=== PATIENT | male | born 1965 | race Caucasian/White ===

== ENCOUNTER 2016-08-23 22:56 | Emergency (ER) | payer BC, OTHER ==
[~2016-08-23] VITALS: Ht 180.3 cm; Wt 107.7 kg
[2016-08-23 23:07] VITALS: BP 198/107; PULSE 99; RESP 22; TEMP 98.7; O2SAT 98
--- NOTE | 2016-08-23 23:14 | PD ---
HPI Chief Complaint: psychiatric evaluation Time Seen by Provider: 23:10 Travel History International Travel<30 days: No Contact w/Intl Traveler<30days: No History of Present Illness HPI Patient comes in under police escort [place] acted by police. Per Blair act patient contacted his "baby mama" and made suicidal statements. Patient denies this. Patient denies any homicidal or suicidal ideations. Patient denies any medical concerns this time. Denies any chest pain, shortness of breath, fevers , abdominal pain, back pain, neck pain, numbness or tingling anywhere, or headaches. Patient's only concern that he is missing the [employer] game that he was wanting to watch as he paid for the premium baseball channel package. PFSH Past Medical History GERD: Yes Social History Alcohol Use: No Tobacco Use: No Substance Use: No Allergies-Medications (Allergen,Severity, Reaction): Coded Allergies: Latex (Verified Allergy, Unknown, 08/23/16) Reported Meds & Prescriptions Reported Meds & Active Scripts Active Reported Nexium (Esomeprazole DR) 20 Mg Capdr 20 Mg PO DAILY Ambien (Zolpidem Tartrate) 10 Mg Tab 10 Mg PO HS PRN Review of Systems Except as stated in HPI: all other systems reviewed are Neg Physical Exam Narrative GENERAL: Well-developed, overly nourished, in no acute distress, and non-ill appearing. SKIN: Focused skin assessment warm and dry. HEAD: Atraumatic. Normocephalic. EYES: Pupils equal and round. EOMI. No scleral icterus. No injection or drainage. ENT: No nasal bleeding or discharge. Mucous membranes pink and moist. NECK: Trachea midline. Supple. No nuclear rigidity. CARDIOVASCULAR: Regular rate and rhythm. No murmur appreciated. RESPIRATORY: No accessory muscle use. No respiratory distress. Clear to auscultation. Breath sounds equal bilaterally. MUSCULOSKELETAL: No obvious deformities. No clubbing. No cyanosis. No edema. Full range of motion. NEUROLOGICAL: Awake and alert. No obvious cranial nerve deficits. Motor grossly within normal limits. Normal speech. PSYCHIATRIC: Appropriate mood and affect; insight and judgment normal. Data Data Last Documented VS Vital Signs Date Time Temp Pulse Resp B/P Pulse Ox O2 Delivery O2 Flow Rate FiO2 08/23/16 23:07 98.7 99 22 198/107 98 Orders Complete Blood Count With Diff (08/23/16 23:09) Comprehensive Metabolic Panel (08/23/16 23:09) Psych Screen (08/23/16 23:09) Drug Screen, Random Urine (08/23/16 23:09) Alcohol (Ethanol) (08/23/16 23:09) Salicylates (Aspirin) (08/23/16 23:09) Tylenol (Acetaminophen) (08/23/16 23:09) Labs Laboratory Tests Test 08/23/16 23:30 White Blood Count 11.3 TH/MM3 Red Blood Count 5.08 MIL/MM3 Hemoglobin 15.7 GM/DL Hematocrit 46.3 % Mean Corpuscular Volume 91.1 FL Mean Corpuscular Hemoglobin 30.9 PG Mean Corpuscular Hemoglobin 33.9 % Concent Red Cell Distribution Width 13.3 % Platelet Count 282 TH/MM3 Mean Platelet Volume 8.4 FL Neutrophils (%) (Auto) 55.5 % Lymphocytes (%) (Auto) 27.5 % Monocytes (%) (Auto) 11.8 % Eosinophils (%) (Auto) 4.3 % Basophils (%) (Auto) 0.9 % Neutrophils # (Auto) 6.2 TH/MM3 Lymphocytes # (Auto) 3.1 TH/MM3 Monocytes # (Auto) 1.3 TH/MM3 Eosinophils # (Auto) 0.5 TH/MM3 Basophils # (Auto) 0.1 TH/MM3 CBC Comment DIFF FINAL Differential Comment Salicylates Level LESS THAN 1.7 MG/DL Sodium Level 142 MEQ/L Potassium Level 3.7 MEQ/L Chloride Level 109 MEQ/L Carbon Dioxide Level 24.4 MEQ/L Anion Gap 9 MEQ/L Blood Urea Nitrogen 15 MG/DL Creatinine 1.12 MG/DL Estimat Glomerular Filtration 70 ML/MIN Rate Random Glucose 108 MG/DL Calcium Level 8.7 MG/DL Total Bilirubin 0.5 MG/DL Aspartate Amino Transf 17 U/L (AST/SGOT) Alanine Aminotransferase 37 U/L (ALT/SGPT) Alkaline Phosphatase 48 U/L Total Protein 7.2 GM/DL Albumin 4.0 GM/DL Acetaminophen Level LESS THAN 2.0 MCG/ML Ethyl Alcohol Level LESS THAN 3 MG/DL MDM Medical Decision Making Medical Screen Exam Complete: Yes Emergency Medical Condition: Yes Differential Diagnosis Homicidal, suicidal, electrolyte abnormality, intoxication, psychosis, other Narrative Course Patient was seen and examined. Labs were obtained and reviewed with the exception of the urine drug screen is currently pending. Patient medically cleared for further treatment and evaluation by psych. Final disposition per psych. Diagnosis Primary Impression: Medical clearance for psychiatric admission Condition: Stable Bari Elkins Aug 23, 2016 23:14
[2016-08-23] MEDS ORDERED: AMBI10TA PO (23:18)
[2016-08-23] MEDS ORDERED: NEXI20CA PO (23:18)
[2016-08-23 23:56] LABS: AUTOMATED NEUTROPHIL # 6.2 TH/MM3 (1.8-7.7); BASOPHIL # 0.1 TH/MM3 (0-0.2); BASOPHIL % 0.9 % (0.0-2.0); EOSINOPHIL # 0.5 TH/MM3 (0-0.4); EOSINOPHIL % 4.3 % (0.0-4.0); HEMATOCRIT 46.3 % (39.0-51.0); HEMO FLAGS DIFF FINAL; LYMPH % 27.5 % (9.0-44.0); LYMPHOCYTE # 3.1 TH/MM3 (1.0-4.8); MEAN CELL VOLUME 91.1 FL (80.0-100.0); MEAN CORPUSCULAR HEMOGLOBIN 30.9 PG (27.0-34.0); MEAN CORPUSCULAR HGB CONC 33.9 % (32.0-36.0); MONO % 11.8 % (0.0-8.0); NEUT % 55.5 % (16.0-70.0); PLATELET COUNT 282 TH/MM3 (150-450); RED BLOOD COUNT 5.08 MIL/MM3 (4.50-5.90); RED CELL DISTRIBUTION WIDTH 13.3 % (11.6-17.2); WHITE BLOOD COUNT 11.3 TH/MM3 (4.0-11.0)
[2016-08-24] LABS: ALT (GPT) 37 U/L (12-78); ANION GAP 9 MEQ/L (5-15); AST (GOT) 17 U/L (15-37); BICARBONATE 24.4 MEQ/L (21.0-32.0); BLOOD UREA NITROGEN 15 MG/DL (7-18); CHLORIDE 109 MEQ/L (98-107); GLOMERULAR FILTRATION RATE 70 ML/MIN (>89); POTASSIUM 3.7 MEQ/L (3.5-5.1); SODIUM (NA) 142 MEQ/L (136-145)
[2016-08-24 00:02] LABS: ACETAMINOPHEN LESS THAN 2.0 MCG/ML (10.0-30.0); ALKALINE PHOSPHATASE 48 U/L (45-117); TOTAL BILIRUBIN ADULT 0.5 MG/DL (0.2-1.0)
[2016-08-24] MEDS ORDERED: ZOLPIDEM TARTRATE 10 MG TAB PO ONE (00:30)
[2016-08-24 00:44] LABS: AMPHETAMINE, URINE NEG (NEG); BARBITURATES, URINE NEG (NEG); COCAINE, URINE NEG (NEG)
[2016-08-24 03:00] VITALS: BP 186/91; PULSE 78; RESP 18; O2SAT 96
[2016-08-24 08:00] VITALS: BP 172/74; PULSE 78; RESP 18; O2SAT 96
[2016-08-24 11:45] VITALS: BP 181/89
[2016-08-24] MEDS ORDERED: LOPERAMIDE HCL 2 MG CAP PO ONE (11:45)
--- NOTE | 2016-08-24 16:01 | PD ---
History of Present Illness Chief Complaint: Psychiatric Symptoms Time Seen by Provider: 15:30 Travel History International Travel<30 Days: No Contact w/Intl Traveler<30days: No Known affected area: No Legal Status Legal Status: Blair Act Blair Act Signed By: Triston Germain Blair Act Comment: 2016 @ 2227 History of Present Illness: History of Present Illness HPI Patient is a 50 year old male with no previous psychiatric history, no previous contact with [facility] [place] who is under a Blair acted initiated by police. Per Blair act report "patient contacted his "baby mama" to tell her he might kill himself. When the police contacted his child's mother she stated he told her he was going to kill himself and leave a note" . ED note is reviewed and included in this report " Patient denies this. Patient denies any homicidal or suicidal ideations. Patient denies any medical concerns this time. Denies any chest pain, shortness of breath, fevers, abdominal pain, back pain, neck pain, numbness or tingling anywhere, or headaches. Patient's only concern that he is missing the [employer] game that he was wanting to watch as he paid for the premium baseball channel package. Patient was monitored in J pod and he presented no behavioral issues and no no suicidality. Patient is seen with Bari WALLACE. He is engaging and cooperative. Speech is clear and logical. he is anxious as he wants to be discharged. He presents with no psychosis and no laura. He denies suicidal ideation, intent or plan. States " I want to be a part of my daughter's life and I am not going to hurt myself" What father would fly from another state to [place] to see his daughter 68 months out of 70 months?. He goes on to say that he was frustrated because there have been issues with his ex girlfriend and arrangements involving him spending time with his daughter. He denies saying that he was going to harm himself. Telephone call to Pia, his child's mother with his consent at [phone]. She reports that she was concerned because of what he had said but that he did not make any attempt at harming himself. She states " He said he was going to write notes and I just wanted to make sure he was ok". She presented no other concerns at this time. [facility] Past Medical History Gastrointestinal Disorders: Yes GERD: Yes Hypertension: Yes (hx of ) Insomnia: Yes Tetanus Vaccination: < 5 Years Influenza Vaccination: No Past Surgical History Tonsillectomy: Yes Psychiatric History Psychiatric History Hx Psychiatric Treatment: None No previous suicide attempts. History of Inpatient Treatment: No Guns or firearms in home: No Social History Single, never . Lives by himself. Unemployed. Has a job opportunity in next week. 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 Hx Alcohol Use: No Hx Tobacco Use: No Hx Substance Use: No Hx of Substance Use Treatment: No Family Psychiatric History Negative Allergies-Medications (Allergen,Severity, Reaction): Coded Allergies: Latex (Verified Allergy, Unknown, 08/23/16) Reported Meds & Prescriptions Reported Meds & Active Scripts Active Reported Nexium (Esomeprazole DR) 20 Mg Capdr 20 Mg PO DAILY Ambien (Zolpidem Tartrate) 10 Mg Tab 10 Mg PO HS PRN Review of Systems Except as stated in HPI: all other systems reviewed are Neg Exam Alert: Yes [place]: Person (ox4) Mood: Anxious Affect: Appropriate Speech: Clear, Logical Eye Contact: Normal Memory Intact: Comment (No impairmetn) Hallucinations: Other (negative) Delusions: No Suicidal: Ideation (denies any) Homicidal: Ideation (Deneis any) Insight/Judgement Fair. Not impaired [facility] Medical Decision Making Medical Record Reviewed: Yes Assessment/Plan 50 year old male with no previous psychiatric history who in context of an argument with his child's mother told her that he might kill himself and may write a note. He acknowledges he said this while he was angry and while arguing with his ex girlfriend. The patient has presented no criteria while in J pod and has not engaged in any self injurious behaviors. He presents no criteria to keep him here under a BA. I have recommended outpatient counseling. Lift BA Orders Complete Blood Count With Diff (08/23/16 23:09) Comprehensive Metabolic Panel (08/23/16 23:09) Psych Screen (08/23/16 23:09) Drug Screen, Random Urine (08/23/16 23:09) Alcohol (Ethanol) (08/23/16 23:09) Salicylates (Aspirin) (08/23/16 23:09) Tylenol (Acetaminophen) (08/23/16 23:09) Zolpidem (Ambien) (08/24/16 00:30) Diet Regular Basic (08/24/16 Breakfast) Loperamide (Imodium) (08/24/16 11:45) Diet Regular Basic (08/24/16 Lunch) Results Vital Signs Date Time Temp Pulse Resp B/P Pulse Ox O2 Delivery O2 Flow Rate FiO2 08/24/16 11:45 78 20 181/89 97 08/24/16 08:00 78 18 172/74 96 Room Air 08/24/16 03:00 78 18 186/91 96 Room Air 08/23/16 23:07 98.7 99 22 198/107 98 Laboratory Tests Test 08/23/16 08/24/16 23:30 00:15 White Blood Count 11.3 Red Blood Count 5.08 Hemoglobin 15.7 Hematocrit 46.3 Mean Corpuscular Volume 91.1 Mean Corpuscular Hemoglobin 30.9 Mean Corpuscular Hemoglobin 33.9 Concent Red Cell Distribution Width 13.3 Platelet Count 282 Mean Platelet Volume 8.4 Neutrophils (%) (Auto) 55.5 Lymphocytes (%) (Auto) 27.5 Monocytes (%) (Auto) 11.8 Eosinophils (%) (Auto) 4.3 Basophils (%) (Auto) 0.9 Neutrophils # (Auto) 6.2 Lymphocytes # (Auto) 3.1 Monocytes # (Auto) 1.3 Eosinophils # (Auto) 0.5 Basophils # (Auto) 0.1 CBC Comment DIFF FINAL Differential Comment Salicylates Level LESS THAN 1.7 Sodium Level 142 Potassium Level 3.7 Chloride Level 109 Carbon Dioxide Level 24.4 Anion Gap 9 Blood Urea Nitrogen 15 Creatinine 1.12 Estimat Glomerular Filtration 70 Rate Random Glucose 108 Calcium Level 8.7 Total Bilirubin 0.5 Aspartate Amino Transf 17 (AST/SGOT) Alanine Aminotransferase 37 (ALT/SGPT) Alkaline Phosphatase 48 Total Protein 7.2 Albumin 4.0 Acetaminophen Level LESS THAN 2.0 Ethyl Alcohol Level LESS THAN 3 Urine Opiates Screen NEG Urine Barbiturates Screen NEG Urine Amphetamines Screen NEG Urine Benzodiazepines Screen NEG Urine Cocaine Screen NEG Urine Cannabinoids Screen NEG Diagnosis Primary Impression: Medical clearance for psychiatric admission Additional Impression: Adjustment disorder Psychiatrically Cleared: Yes Med/ Other Pt Specific Info: No Meds Exist/No RX given Disposition: 01 DISCHARGE HOME Condition: Stable Problem Qualifiers Additional Impression: Adjustment disorder Qualified Code: F43.22 - Adjustment disorder with anxious mood Holly May Aug 24, 2016 16:00
== END 2016-08-24 16:40 | disposition home or self-care (01) ==
LOC: NEPD 22:56 → NEPJ 08-24 16:40
DX: F43.20 Adjustment disorder, unspecified (principal); I10 Essential (primary) hypertension; K21.9 Gastro-esophageal reflux disease without esophagitis; Z79.899 Other long term (current) drug therapy; G47.00 Insomnia, unspecified
CPT/HCPCS: 80053; 80307; 85025; 99284